=== PATIENT | female | born 1975 | race Caucasian/White ===

== ENCOUNTER 2023-05-17 16:00 | Observation (INO) | payer BC ==
[2023-05-17 16:11] VITALS: BMI 20.5
[2023-05-17] MEDS ORDERED: ASPIRIN 81 MG CHEWABLE TABLETS PO ONE (16:54)
[2023-05-17] MEDS ORDERED: ASPIRIN 81 MG CHEWABLE TABLETS ONE ×2 (17:12→17:38)
[2023-05-17 17:30] LABS: BASO % 0.5 % (0-2.0); EOS % 0.3 % (0-4.5); HEMATOCRIT 42.8 % (32.4-45.2); HEMOGLOBIN 14.2 GM/dL (10.7-15.3); MCH 31.2 pg (25.7-33.7); MCHC 33.3 g/dl (32.0-36.0); MEAN CELL VOLUME 93.6 fl (80-96); MEAN PLT VOLUME 8.9 fl (7.5-11.1); MONO % 7.4 % (3.8-10.2); NEUT % 76.8 % (42.8-82.8); PLATELET COUNT 270 10^3/uL (134-434); RBC 4.57 M/mm3 (3.60-5.2); RDW 13.5 % (11.6-15.6); WHITE BLOOD COUNT 11.5 K/mm3 (4.0-10.0)
[2023-05-17] MEDS ORDERED: ACETAMINOPHEN 1000 MG/100 ML BAG IVPB ONE (17:37)
[2023-05-17] MEDS ORDERED: SODIUM CHLORIDE 0.9% 500 ML INFUS.BAG IV ONE (17:39)
[2023-05-17] MEDS ORDERED: ACETAMINOPHEN INJECTION 100 ML IVPB ONE (17:50)
[2023-05-17 17:56] LABS: POTASSIUM 3.5 mmol/L (3.5-5.1)
[2023-05-17 17:58] LABS: CALCIUM 8.9 mg/dL (8.5-10.1)
[2023-05-17 17:59] LABS: ALBUMIN 3.8 g/dl (3.4-5.0); BLOOD UREA NITROGEN 8.1 mg/dL (7-18); MAGNESIUM 1.9 mg/dL (1.8-2.4)
[2023-05-17 18:02] LABS: CREATININE 0.6 mg/dL (0.55-1.3)
[2023-05-17 18:03] LABS: BILIRUBIN,TOTAL 0.3 mg/dL (0.2-1)
[2023-05-17 18:06] LABS: TOT PROT 7.3 g/dl (6.4-8.2)
[2023-05-17 20:11] LABS: INR 1.03 (0.83-1.09); PROTHROMBIN TIME (PATIENT) 11.9 SEC (9.7-13.0)
[2023-05-17 20:13] LABS: ACTIVATED PTT 32.2 SECONDS (25.2-36.5)
[2023-05-17] MEDS ORDERED: FAMOTIDINE 20 MG/50 ML IVPB 20 MG/50 ML MG IVPB ONE ×2 (21:02→21:17)
[2023-05-17] MEDS ORDERED: ACETAMINOPHEN 1000 MG/100 ML BAG IVPB PRN (21:52)
[2023-05-17] MEDS ORDERED: LORazepam 0.5 MG TABLET PO ONE (21:53)
[2023-05-17] MEDS ORDERED: LORazepam 1 MG TABLET PO ONE (22:03)
[2023-05-17] MEDS ORDERED: KETOROLAC TROMETHAMINE 15 MG/ML VIAL IVPUSH ONE (22:05)
[2023-05-17] MEDS ORDERED: LORazepam 1 MG TABLET ONE (22:13)
[2023-05-17] MEDS ORDERED: KETOROLAC TROMETHAMINE 15 MG/ML VIAL ONE (22:13)
[2023-05-18 00:53] LABS: PHOSPHOROUS 2.8 mg/dL (2.5-4.9)
[2023-05-18 06:16] LABS: HEMOGLOBIN 13.8 GM/dL (10.7-15.3); MCH 31.7 pg (25.7-33.7); MCHC 33.8 g/dl (32.0-36.0); MEAN CELL VOLUME 93.8 fl (80-96); MEAN PLT VOLUME 8.6 fl (7.5-11.1); PLATELET COUNT 246 10^3/uL (134-434); RBC 4.37 M/mm3 (3.60-5.2); RDW 13.9 % (11.6-15.6); WHITE BLOOD COUNT 10.1 K/mm3 (4.0-10.0)
[2023-05-18 06:34] LABS: POTASSIUM 3.8 mmol/L (3.5-5.1)
[2023-05-18 06:36] LABS: CALCIUM 8.7 mg/dL (8.5-10.1)
[2023-05-18 06:37] LABS: ALBUMIN 3.3 g/dl (3.4-5.0); BLOOD UREA NITROGEN 7.2 mg/dL (7-18); MAGNESIUM 1.9 mg/dL (1.8-2.4)
[2023-05-18 06:40] LABS: CREATININE 0.7 mg/dL (0.55-1.3); PHOSPHOROUS 3.8 mg/dL (2.5-4.9)
[2023-05-18 06:41] LABS: BILIRUBIN,TOTAL 0.6 mg/dL (0.2-1); TOT PROT 6.4 g/dl (6.4-8.2)
[2023-05-18 06:59] VITALS: RESP 19; TEMP 97.9
[2023-05-18] MEDS ORDERED: PANTOPRAZOLE 40 MG TABLET PO ONE (07:19)
[2023-05-18] MEDS ORDERED: METOPROLOL TARTRATE 25 MG TABLET (FP) ONE (07:19)
[2023-05-18] MEDS ORDERED: POTASSIUM CHLORIDE TABS 20 MEQ TABLET.ER (FP) PO ONE ×2 (07:20→08:00)
[2023-05-18] MEDS ORDERED: MAGNESIUM SULFATE IN WATER 2 GM/50 ML IVPB IVPB ONE (07:20)
[2023-05-18] MEDS ORDERED: amLODIPine BESYLATE 10 MG TABLET (FP) ONE (07:20)
[2023-05-18] MEDS ORDERED: MAGNESIUM SULF 50% (8.12 MEQ/2 ML-1 GM VIAL) IVPB ONE (08:00)
[2023-05-18 09:01] VITALS: BP 129/75; PULSE 60
[2023-05-18] MEDS ORDERED: PANTOPRAZOLE 40 MG TABLET PO SCH (10:00)
[2023-05-18] MEDS ORDERED: METOPROLOL TARTRATE 25 MG TABLET (FP) PO SCH (10:00)
[2023-05-18] MEDS ORDERED: metoPROLOL SUCCINATE 25 MG TAB.SR.24H (FP) PO SCH (10:00)
[2023-05-18] MEDS ORDERED: ENOXAPARIN NA (PORCINE) 40 MG/0.4 ML DISP.SYRIN SQ SCH (10:00)
[2023-05-18] MEDS ORDERED: amLODIPine BESYLATE 10 MG TABLET (FP) PO SCH (10:00)
[2023-05-18] MEDS ORDERED: SODIUM CHLORIDE 0.9% 500 ML INFUS.BAG IV ONE (10:45)
[2023-05-18] MEDS ORDERED: SODIUM CHLORIDE 0.9% 1000 ML INFUS.BAG IV ONE (10:45)
[2023-05-18] MEDS ORDERED: ATORVASTATIN CA 80 MG TABLET (FP) PO ONE (10:46)
[2023-05-18] MEDS ORDERED: ATORVASTATIN CA 80 MG TABLET (FP) ONE (10:57)
[2023-05-18 15:42] LABS: OPIATES, URI NEGATIVE (NEGATIVE)
[2023-05-18 15:48] LABS: PHENCYCLIDINE,URINE NEGATIVE (NEGATIVE); URINE BARBITURATES NEGATIVE (NEGATIVE)
[2023-05-18 15:49] LABS: URINE BENZODIAZEPINES NEGATIVE (NEGATIVE)
[2023-05-18 15:56] LABS: COCAINE, UR NEGATIVE (NEGATIVE); METHADONE, UR NEGATIVE (NEGATIVE)
[2023-05-18 18:54] LABS: URINE AMPHETAMINES NEGATIVE (NEGATIVE)
== END 2023-05-18 15:01 | disposition home or self-care (01) ==
LOC: JER 16:00 → JERBED 21:01 → UNDOADMOB 21:01 → INTOOBSV 21:26 → OBSVTOIN 21:26 → JERBED 05-18 11:03
PROVIDERS: ADMIT Internal Medicine
PROC: 3E033NZ Introduction of Analgesics, Hypnotics, Sedatives into Peripheral Vein, Percutaneous Approach (ICD-10-PCS; principal; 2023-05-18)
PROC: 3E033GC Introduction of Other Therapeutic Substance into Peripheral Vein, Percutaneous Approach (ICD-10-PCS; 2023-05-18)
PROC: 3E0333Z Introduction of Anti-inflammatory into Peripheral Vein, Percutaneous Approach (ICD-10-PCS; 2023-05-18)
PROC: 3E0337Z Introduction of Electrolytic and Water Balance Substance into Peripheral Vein, Percutaneous Approach (ICD-10-PCS; 2023-05-18)
DX: R07.89 Other chest pain (principal); R20.2 Paresthesia of skin; K22.70 Barrett's esophagus without dysplasia; F41.9 Anxiety disorder, unspecified; I10 Essential (primary) hypertension
CPT/HCPCS: 36415; 70450-TC; 71046-TC-FY; 71275-TC; 74174-TC; 80053; 80061; 80307; 82550; 83036; 83735; 84100; 84439; 84443; 84484; 85025; 85027; 85610; 85730; 93005; 93010; 93306-TC; 93351; 99285-25; G0378; Q9967

== ENCOUNTER 2025-04-15 16:59 | Emergency (ER) | payer BC, OTHER ==
[2025-04-15 17:22] VITALS: BMI 27.4
[2025-04-15 17:59] LABS: ABSOLUTE IMMATURE GRANULOCYTES 0.01 x10^3/uL (0.0-0.031); BASOPHILS # 0.03 x10^3/uL (0.01-0.08); EOSINOPHIL % 0.3 % (0.7-5.8); EOSINOPHILS # 0.02 x10^3/uL (0.04-0.36); HEMATOCRIT 43.6 % (34.1-44.9); HEMOGLOBIN 14.7 g/dL (11.2-15.7); MCHC 33.7 g/dl (32.2-35.5); MEAN CELL VOLUME 88.3 fl (79.4-94.8); MEAN PLT VOLUME 9.9 fl (9.4-12.3); MONOCYTE # 0.59 x10^3/uL (0.24-0.86); MONOCYTE % 8.1 % (4.7-12.5); PLATELET COUNT 261 x10^3/uL (182-369); RDW 13.9 % (12.3-16.6)
[2025-04-15 18:22] LABS: POTASSIUM 3.9 mmol/L (3.5-5.1)
[2025-04-15 18:24] LABS: BLOOD UREA NITROGEN 13.8 mg/dL (7-18); CALCIUM 9.6 mg/dL (8.5-10.1)
[2025-04-15 18:27] LABS: CREATININE 0.8 mg/dL (0.55-1.3)
[2025-04-15 18:29] LABS: BILIRUBIN,TOTAL 0.6 mg/dL (0.2-1); TOT PROT 7.4 g/dl (6.4-8.2)
[2025-04-15 19:36] VITALS: BP 141/95; PULSE 81; RESP 16
[2025-04-15 19:36] LABS: PH,URINE 6.5 (5.0-8.0); URINE APPEARANCE CLEAR; URINE BILIRUBIN NEGATIVE (NEGATIVE); URINE COLOR YELLOW; URINE GLUCOSE (UA) NEGATIVE (NEGATIVE); URINE KETONE NEGATIVE (NEGATIVE); URINE LEUK ESTERASE NEGATIVE (NEGATIVE); URINE NITRITE NEGATIVE (NEGATIVE); URINE PROTEIN NEGATIVE (NEGATIVE); URINE UROBILINOGEN 0.2 mg/dL (0.2-1.0)
[2025-04-15] MEDS ORDERED: IBUPROFEN 400 MG TABLET (FP) PO ONE (19:39)
[2025-04-15] MEDS ORDERED: METOCLOPRAMIDE HCL INJECTION 10 MG/2 ML VIAL ONE (19:50)
[2025-04-15] MEDS: METOCLOPRAMIDE HCL INJECTION 10 MG/2 ML VIAL IVPB ONE (20:01)
[2025-04-15] MEDS: IBUPROFEN 400 MG TABLET (FP) PO ONE (20:13)
[2025-04-15 21:25] LABS: URINE COLOR YELLOW
[2025-04-15 21:26] LABS: PH,URINE 6.5 (5.0-8.0); URINE APPEARANCE CLEAR; URINE BILIRUBIN NEGATIVE (NEGATIVE); URINE GLUCOSE (UA) NEGATIVE (NEGATIVE); URINE KETONE NEGATIVE (NEGATIVE); URINE LEUK ESTERASE NEGATIVE (NEGATIVE); URINE NITRITE NEGATIVE (NEGATIVE); URINE PROTEIN NEGATIVE (NEGATIVE); URINE UROBILINOGEN 0.2 mg/dL (0.2-1.0)
== END 2025-04-15 20:52 | disposition home or self-care (01) ==
LOC: JER 16:59
PROC: 3E033GC Introduction of Other Therapeutic Substance into Peripheral Vein, Percutaneous Approach (ICD-10-PCS; principal; 2025-04-15)
DX: I10 Essential (primary) hypertension (principal); R07.89 Other chest pain; R51.9 Headache, unspecified; R42 Dizziness and giddiness; R11.0 Nausea; R00.2 Palpitations
CPT/HCPCS: 36415; 70450-TC; 71045-TC-FY; 80053; 81003; 84484; 85025; 87086; 93005; 93010; 99285-25